=== PATIENT | female | born 1935 | race Caucasian/White ===

== ENCOUNTER 2019-12-21 16:28 | Inpatient (IN) ==
[2019-12-21 16:53] LABS: ABS Eosinophils 0.2 10^3/ul (0-0.6); ABS Lymphocytes 1.3 10^3/ul (1.0-4.8); ABS Monocytes 0.6 10^3/ul (0-0.8); ABS Neutrophils 5.8 10^3/ul (1.5-7.7); Eosinophil % 2.6 %; Hematocrit 42 % (35-47); Hemoglobin 14.7 g/dL (12.0-16.0); Lymphocyte % 16.1 %; Mean Corpuscular HGB Conc 35 g/dL (31-36); Mean Corpuscular Hemoglobin 30 pg (27-31); Mean Corpuscular Volume 87 fL (80-97); Mean Platelet Volume 8.4 fL (7.4-10.4); Platelet Count 217 10^3/uL (150-450); Red Blood Count 4.87 10^6 /uL (3.70-4.87); Red Cell Distribution Width 14 % (10-15)
[2019-12-21 17:00] LABS: INR 0.96 (0.82-1.09)
[2019-12-21] MEDS ORDERED: NS 0.9% 1000 ml BAG 1,000 ML IV ONE ×2 (17:05→17:08)
[2019-12-21 17:12] LABS: Troponin I 0.02 ng/mL (<0.03)
[2019-12-21] MEDS ORDERED: Diltiazem IV push/loading dose 5 MG/ML 5 ML vial (25 mg) IV SLOW PU ONE (17:20)
[2019-12-21 17:41] LABS: Albumin 4.5 g/dL (3.2-5.2); Albumin/Globulin Ratio 1.6 (1-3); BUN/Creatinine Ratio 39.4 (8-20); Calcium 9.7 mg/dL (8.6-10.3); EGFR African American 95.4 (>60); EGFR Non-African American 78.8 (>60); Globulin 2.9 g/dL (2-4); Magnesium 2.3 mg/dL (1.9-2.7); Potassium 4.3 mmol/L (3.5-5.0); Total Bilirubin 0.3 mg/dL (0.2-1.0); Total Protein 7.4 g/dL (6.4-8.9)
[2019-12-21 19:39] LABS: Troponin I 0.03 ng/mL (<0.03)
[2019-12-21 20:25] LABS: TSH Ultra Thyroid Stim Horm 2.7 mcIU/mL (0.34-5.60)
[2019-12-21] MEDS ORDERED: Heparin 5000 UNITS/ML 1 mL VIAL IV SCH (21:00)
[2019-12-21] MEDS ORDERED: Heparin DRIP 25,000 UNITS BAG 25,000 UNITS/500 ML BAG IV SCH (21:00)
[2019-12-21] MEDS ORDERED: Heparin 5000 UNITS/ML 1 mL VIAL SUBCUT SCH (22:00)
[2019-12-22 00:42] LABS: Troponin I 0.04 ng/mL (<0.03)
[2019-12-22 05:17] LABS: Anion Gap 6 mmol/L (2-11); BUN/Creatinine Ratio 33.3 (8-20); Blood Urea Nitrogen 22 mg/dL (6-24); CO2 Carbon Dioxide 24 mmol/L (22-32); Calcium 8.2 mg/dL (8.6-10.3); Chloride 111 mmol/L (101-111); EGFR African American 103.7 (>60); EGFR Non-African American 85.7 (>60); Glucose 124 mg/dL (70-100); Potassium 3.7 mmol/L (3.5-5.0); Sodium 141 mmol/L (135-145)
[2019-12-22 05:21] LABS: ABS Eosinophils 0.3 10^3/ul (0-0.6); ABS Lymphocytes 1.5 10^3/ul (1.0-4.8); ABS Monocytes 0.6 10^3/ul (0-0.8); Eosinophil % 4.5 %; Hematocrit 36 % (35-47); Hemoglobin 12.2 g/dL (12.0-16.0); Lymphocyte % 23.5 %; Mean Corpuscular HGB Conc 34 g/dL (31-36); Mean Corpuscular Hemoglobin 30 pg (27-31); Mean Corpuscular Volume 87 fL (80-97); Mean Platelet Volume 8.9 fL (7.4-10.4); Platelet Count 168 10^3/uL (150-450); Red Blood Count 4.08 10^6 /uL (3.70-4.87); Red Cell Distribution Width 14 % (10-15); White Blood Count 6.4 10^3/uL (3.5-10.8)
[2019-12-22 05:25] LABS: Troponin I 0.03 ng/mL (<0.03)
[2019-12-22] MEDS ORDERED: Potassium Chlor 20 meq TAB.ER PO ONE (06:59)
[2019-12-22 17:47] VITALS: BP 134/80
== END 2019-12-22 17:45 | disposition home or self-care (01) | DRG 310 ==
LOC: ED 16:28 → ICU 20:22
PROVIDERS: ADMIT Student in an Organized Health Care Education/Training Program; ATTEND Internal Medicine